=== PATIENT | male | born 1995 | race Two or more races ===

== ENCOUNTER 2023-06-28 03:47 | Emergency (ER) | payer OTHER ==
[2023-06-28 04:09] LABS: BASOPHILS ABSOLUTE AUTO 0.07 K/uL (0.00-0.20); BASOPHILS PERCENT AUTO 0.6 % (0.0-1.0); EOSINOPHILS ABSOLUTE AUTO 0.33 K/uL (0.00-0.45); HEMATOCRIT 49.1 % (42.0-52.0); HEMOGLOBIN 16.2 g/dL (14.0-18.0); IMMATURE GRAN ABSOLUTE AUTO 0.07 K/uL (0.00-0.05); IMMATURE GRAN PERCENT AUTO 0.6 % (0.0-0.4); LYMPHOCYTES ABSOLUTE AUTO 1.07 K/uL (1.00-4.80); LYMPHOCYTES PERCENT AUTO 9.8 % (24.0-44.0); MEAN CORPUSCULAR HEMOGLOBIN 28.9 pg (28.0-32.0); MEAN CORPUSCULAR VOLUME 87.5 fL (83.0-99.0); MEAN PLATELET VOLUME 9.5 fL (9.4-12.4); MONOCYTES ABSOLUTE AUTO 0.58 K/uL (0.00-0.80); MONOCYTES PERCENT AUTO 5.3 % (0.0-8.0); NEUTROPHILS ABSOLUTE AUTO 8.79 K/uL (1.80-7.70); NEUTROPHILS PERCENT AUTO 80.7 % (41.0-71.0); PLATELET COUNT,PLT 286 K/uL (150-400); RED BLOOD CELL COUNT 5.61 M/uL (4.52-5.90); WHITE BLOOD CELL COUNT,WBC 10.91 K/uL (3.9-11.3)
[2023-06-28] MEDS: Ibuprofen 400 MG Tab PO ONE (04:16)
[2023-06-28] MEDS: Albuterol/Ipratropium 3.0-0.5 MG/3 ML Neb Soln NEB ONE (04:17)
[2023-06-28] MEDS: Sodium Chloride 0.9% 2.5 ML Syringe FLUSH PRN (04:17)
[2023-06-28] MEDS: Sodium Chloride 0.9% 10 ML Syringe FLUSH PRN (04:17)
[2023-06-28] MEDS: methylPREDNISolone Sodium Succinate 125 MG/2 ML SDV IVPUSH ONE (04:17)
[2023-06-28] MEDS: Acetaminophen 500 MG Tab PO ONE (04:17)
[2023-06-28] MEDS: Sodium Chloride 0.9% 1,000 ML IV ONE (04:18)
[2023-06-28] MEDS: Ondansetron 4 MG/2 ML SDV IVPUSH ONE (04:19)
[2023-06-28 04:33] LABS: A/G RATIO 0.9 (0.9-1.6); ALANINE AMINOTRANSFERASE,ALT 28 IU/L (14-63); ALBUMIN 3.8 g/dL (3.4-5.0); ALKALINE PHOSPHATASE 120 U/L (46-116); ASPARTATE AMNIOTRANSFERASE,AST 20 IU/L (15-37); BILIRUBIN TOTAL 0.3 mg/dL (0.2-1.0); BLOOD UREA NITROGEN,BUN 16 mg/dL (7.0-18.0); CALCIUM 9.1 mg/dL (8.5-10.1); CARBON DIOXIDE,CO2 25.2 mmol/L (21.0-32.0); CHLORIDE,CL 104 mmol/L (98-107); CREATININE 1.3 mg/dL (0.8-1.3); GLUCOSE RANDOM 127 mg/dL (74-106); POTASSIUM,K 3.9 mmol/L (3.5-5.1); SODIUM,NA 140 mmol/L (136-148)
[2023-06-28 04:34] LABS: ESTIMATED GFR 76 mL/min (>60)
[2023-06-28 04:47] LABS: CORONAVIRUS COVID-19 NAA NEGATIVE (NEGATIVE); INFLUENZA A NAA NEGATIVE (NEGATIVE); INFLUENZA B NAA NEGATIVE (NEGATIVE); RESPIRATORY SYNCYTIAL VIR NAA NEGATIVE (NEGATIVE)
[2023-06-28] MEDS: Doxycycline 100 MG Cap PO ONE (05:06)
== END 2023-06-28 05:14 | disposition home or self-care (01) ==
LOC: MW.ED 03:47
DX: R06.2 Wheezing (principal); R05.9 Cough, unspecified; Z75.8 Other problems related to medical facilities and other health care
CPT/HCPCS: 0241U; 36415; 80053; 84484; 85025; 93005; 96374; 99285; A9270; J2930; J3490; 93010; 99283; J7030; J7620-GY